=== PATIENT | male | born 1975 | race Caucasian/White ===

== ENCOUNTER 2022-02-03 08:53 | Emergency (ER) | payer MEDICAID ==
[~2022-02-03] VITALS: Ht 172.7 cm; Wt 68.0 kg
[2022-02-03 08:55] VITALS: BP 121/68
== END 2022-02-03 09:53 | disposition home or self-care (01) ==
LOC: ER 08:54
DX: F15.90 Other stimulant use, unspecified, uncomplicated (principal); F17.200 Nicotine dependence, unspecified, uncomplicated
CPT/HCPCS: 99281

== ENCOUNTER 2022-10-14 09:02 | Emergency (ER) | payer MEDICAID ==
[~2022-10-14] VITALS: Ht 172.7 cm; Wt 72.0 kg
[2022-10-14 09:06] VITALS: BP 128/89
[2022-10-14] MEDS ORDERED: MUPI22OI30 TP (11:29)
== END 2022-10-14 11:37 | disposition home or self-care (01) ==
LOC: ER 09:03
DX: Z48.00 Encounter for change or removal of nonsurgical wound dressing (principal); L08.9 Local infection of the skin and subcutaneous tissue, unspecified; F17.200 Nicotine dependence, unspecified, uncomplicated; F12.90 Cannabis use, unspecified, uncomplicated; F15.90 Other stimulant use, unspecified, uncomplicated; Z79.899 Other long term (current) drug therapy
CPT/HCPCS: 99283

== ENCOUNTER 2023-10-28 01:57 | Emergency (ER) | payer MEDICAID ==
[~2023-10-28] VITALS: Ht 172.7 cm; Wt 62.6 kg
[2023-10-28 01:58] VITALS: BP 114/80; PULSE 69; RESP 16; TEMP 97.7; O2SAT 97
[2023-10-28] MEDS ORDERED: ondansetron 4mg rapidly disintigrating tab PO ONE (02:30)
[2023-10-28] MEDS ORDERED: benzonatate 100mg capsule PO ONE (02:35)
[2023-10-28] MEDS ORDERED: azithromycin 250mg tablet PO ONE (02:35)
[2023-10-28] MEDS ORDERED: acetaminophen 325mg tablet PO ONE (02:35)
[2023-10-28] MEDS ORDERED: AZIT-164 PO (02:36)
== END 2023-10-28 02:49 | disposition home or self-care (01) ==
LOC: ER 01:58
DX: J06.9 Acute upper respiratory infection, unspecified (principal); F17.210 Nicotine dependence, cigarettes, uncomplicated; F12.90 Cannabis use, unspecified, uncomplicated; F15.90 Other stimulant use, unspecified, uncomplicated
CPT/HCPCS: 99283